=== PATIENT | male | born 1975 | race Caucasian/White ===

== ENCOUNTER 2024-07-26 23:21 | Emergency (ER) | payer BC, SELFPAY ==
[2024-07-26 23:25] VITALS: BP 148/105
[2024-07-26 23:29] VITALS: BP 148/105
--- NOTE | 2024-07-27 00:17 | ED.MUSCINJ ---
HPI-Injury
General
Chief Complaint: Musculo-Skeletal Complaint
Source: patient and spouse
Exam Limitations: none
Time Seen by Provider: 07/26/24 23:44
Nursing documentation reviewed up to this point in time: agreed with
History of Present Illness-Injury
Is this injury a work related problem?: No
Initial Injury comments:
This is a 48-year-old gentleman with no significant past medical history other than occasional migraine headaches who states while walking up steps he inadvertently tripped on something that was left on the step, falling forward striking his left
forearm on the banister. He complains of significant pain, superficial abrasion left mid to distal ulnar aspect of his forearm. He denies wrist nor hand nor elbow nor upper arm pain. No weakness nor numbness. He has not taken anything for pain.
Unsure as to his last tetanus booster.
Past History
Past History
ED Past Medical History: Other (Migraines)
ED Past Surgical History: Orthopedic
Social History
Tobacco: Former smoker
Alcohol: Occasional
Drug: None
Personal:
Living: with family
Employment: Employed
Family History
Family History: Other (Noncontributory)
Musculoskeletal Injury Exam
Musculoskeletal Injury Exam
Left Middle Medial Distal Arm:
Pain with Movement?: None
Tender to palpation?: Moderate
Soft tissue swelling?: Mild
External deformity and angulation?: None
Joint effusion?: None
Contusion?: Moderate
Hematoma-local bleeding into tissue?: Mild
Strain- Sprain- Tear (Connective tissue injury)?: None
Crepitus with movement?: No
Joint instability?: No
Malalignment/deformity?: No
Range of motion: Full (There is full wrist, digit as well as elbow range of motion without difficulty nor pain.)
Distal skin color and temperature: normal-warm & good color
Capillary Refill: normal
Normal distal neurovascular exam?: Yes
Skin Exam
Abrasion
Left Middle Medial Distal Arm:
Description of abrasion: superfical/clean (Superficial linear abrasion at mid aspect of soft tissue contusion mid to distal ulnar aspect of the left forearm. No bleeding.)
Phy Exam
Physical Exam
Physical Exam:
TRAUMA EXAM:
VITAL SIGNS: Vital signs reviewed, cooperative
DISTRESS: No active disease
NOSE: No deformity or epistaxis
FACE AND SCALP: No scalp or facial trauma
NECK: Supple nontender
BACK: Back nontender, pelvis stable to compression
RESPIRATORY: No distress, breath sounds normal, no tender chest wall
CARDIAC: No murmur, pulses equal and strong
ABDOMEN: Soft nontender bowel sounds normal
SKIN: Warm and dry, normal color.
EXTREMITIES: Peripheral pulses are full and equal bilaterally. Full range of motion.
NEUROLOGICAL: Alert, oriented, no motor deficits
PSYCH: Mood affect normal
Injury Course
Orders/Labs/Results
Orders:
Orders
07/26/24 23:31
CR Forearm - Left 2 View Urgent
Comment:
Reason For Exam: fall/pAIN
07/27/24 00:09
Ibuprofen [Motrin] 800 mg PO NOW STA
Tetanus/Diphth/Acelpertussis [Adacel] 0.5 ml IM .ONCE ONE
MDM/Problems Addressed
Differential Diagnosis Includes:
Patient presents after trip and fall while ascending steps striking his left mid to distal forearm on a banister.
Has suffered a focal soft tissue contusion with superficial abrasion with moderate local tenderness to palpation.
Concern for ulnar fracture thus x-ray obtained which is unremarkable. No evidence of fracture.
Will medicate for pain with ibuprofen.
Superficial skin abrasion cleansed with normal saline solution. Will dress with bacitracin and nonstick dressing.
Will update Tdap.
Recommend supportive measures, ice, elevation. Continue ibuprofen versus Tylenol as needed for pain.
Follow-up with PCP for recheck.
*Radiology
Radiology exam reviewed: preliminary read by ED provider (Left forearm x-rays negative for fracture.)
*Pulse Oximetry
Patient hypoxic: no
*Critical Care Note
Total Time (30-74mins, 75-104mins- exclusive of procedures): Not Applicable
ED Attending Note
-
Portions of this chart may have been created with voice recognition software.� Occasional wrong word or��sound alike� substitutions may have occurred due to the inherent limitations of voice recognition software.
Discharge Plan
Departure
Patient Disposition: Home (Routine Discharge)
Date of Disposition: 07/27/24
Time of Disposition: 00:32
Patient with high blood pressure during this ER visit?: Yes
Condition: Good
Discharge Problem:
Contusion of left forearm
Instructions: Contusion (DC), Taking care of cuts, scrapes, and puncture wounds, Tdap vaccine, BLOOD PRESSURE
Prescriptions:
No Action
rizatriptan [Maxalt] 10 MG tablet
10 mg PO PRN PRN (Reason: migraines)
desloratadine-pseudoephedrine [Clarinex-D 12 HOUR] 1 EACH tablet, ER multiphase 12 hr
1 ea PO DAILY
alprazolam 0.5 MG tablet
0.5 mg PO Q6HPRN PRN (Reason: as directed)
Interventions
Interventions:
*Risk Screen - Suicide Last Done: 07/26/24 23:29
*General Assessment Last Done: 07/26/24 23:29
*Neglect/Abuse Screening Last Done: 07/26/24 23:55
ED- Fall Risk Assessment Last Done: 07/26/24 23:55
*ED COVID-19 Vaccine History Last Done: 07/26/24 23:55
ED-Musculoskeletal Assessment Last Done: 07/26/24 23:55
Discharge Date and Time
Print Language: SPANISH
[2024-07-27] MEDS: MOTRIN 800 MG PO (00:20)
[2024-07-27] MEDS: ADACEL 0.5 ML IM (00:23)
[2024-07-27 00:28] VITALS: BMI 32.1
[2024-07-27 00:50] VITALS: BP 124/77
== END 2024-07-27 00:50 | disposition home or self-care (01) ==
LOC: EMR 23:21
PROVIDERS: EMERGENCY PHYSICIAN Emergency Medicine; FAMILY PHYSICIAN Family Medicine
DX: S50.12XA Contusion of left forearm, initial encounter (principal); S50.812A Abrasion of left forearm, initial encounter; W10.9XXA Fall (on) (from) unspecified stairs and steps, initial encounter; Z23 Encounter for immunization; Z87.891 Personal history of nicotine dependence
CPT/HCPCS: 90471; 99283; 73090; 90715

== ENCOUNTER 2024-10-05 06:11 | Day surgery (SDC) | payer BC, SELFPAY | END 2024-10-05 09:50 | disposition home or self-care (01) | LOC: GI 06:11 | PROVIDERS: ATTENDING PHYSICIAN Internal Medicine | DX: Z12.11 Encounter for screening for malignant neoplasm of colon (principal); D12.5 Benign neoplasm of sigmoid colon; D12.7 Benign neoplasm of rectosigmoid junction; K63.5 Polyp of colon; Z86.0100 Personal history of colon polyps, unspecified | CPT/HCPCS: 45385; 45380; 88305 ==